=== PATIENT | female | born 1995 | race Caucasian/White ===

== ENCOUNTER 2018-03-03 21:29 | Emergency (ER) | payer SELFPAY ==
[~2018-03-03] VITALS: Ht 154.9 cm; Wt 78.2 kg
[2018-03-04 01:05] VITALS: BP 118/77
== END 2018-03-04 01:10 | disposition home or self-care (01) ==
LOC: ER 21:29
DX: J40 Bronchitis, not specified as acute or chronic (principal); R09.89 Other specified symptoms and signs involving the circulatory and respiratory systems; R07.0 Pain in throat; R09.81 Nasal congestion; R50.9 Fever, unspecified
CPT/HCPCS: 71045; 81025; 99283